=== PATIENT | female | born 1930 | race Two or more races ===

== ENCOUNTER 2016-12-15 16:32 | Inpatient (IN) | payer MEDICARE, OTHER ==
[~2016-12-15] VITALS: Ht 165.1 cm; Wt 69.4 kg
--- NOTE | 2016-12-15 16:42 | NUR ---
BIBRA FROM HOME DT SOB, PATIENT IS AA3, APPEARS IN MILD DISTRESS. PT IS SATING 87% IN ROOM AIR. DENIES CHES PAIN. SKIN IS WARM TO TOUCH AND NON DIAPHORETIC. AFEBRILE. BILATERAL BOTH LOWER EXTREMITIES EDEMA NOTED. PT'S IV ON RAC 20. INTACT.
--- NOTE | 2016-12-15 16:44 | NUR ---
EKG IN PROGESS
--- NOTE | 2016-12-15 16:45 | NUR ---
PLACED PT ON O2 VIA NC @ 3LPM. WELL TOLERATED
[2016-12-15] MEDS ORDERED: FUROSEMIDE 40 MG/4 ML VIAL ONE ×2 (16:50→21:06)
[2016-12-15] MEDS ORDERED: NITROGLYCERIN PACKET 1 GM PACKET ONE (16:50)
[2016-12-15] MEDS ORDERED: NITROGLYCERIN PACKET 1 GM PACKET TD ONE (17:00)
[2016-12-15] MEDS ORDERED: FUROSEMIDE 40 MG/4 ML VIAL IV ONE (17:00)
[2016-12-15 17:15] LABS: BASOPHILS % (AUTO) 0.5 % (0.0-2.0); EOSINOPHILS # (AUTO) 0.1 /CMM (0.0-0.7); EOSINOPHILS % (AUTO) 0.8 % (0.0-6.0); HEMATOCRIT 38 % (33-45); HEMOGLOBIN 12.1 g/dL (11.5-14.8); LYMPHOCYTES # (AUTO) 0.7 /CMM (0.8-4.8); LYMPHOCYTES % (AUTO) 8.6 % (20.0-44.0); MEAN CORPUSCULAR HEMOGLOBIN 27 PG (26.0-33.0); MEAN CORPUSCULAR HGB CONC 32 g/dl (31.0-36.0); MEAN CORPUSCULAR VOLUME 85 fL (82-100); MONOCYTES # (AUTO) 0.8 /CMM (0.1-1.30); MONOCYTES % (AUTO) 9.5 % (2.0-12.0); NEUTROPHILS # (AUTO) 6.7 /CMM (1.8-8.9); NEUTROPHILS % (AUTO) 80.6 % (43.0-81.0); PLATELET COUNT (AUTO) 215 /CMM (150-450); RDW COEFFICIENT OF VARIATION 15.5 (11.5-15.0); RED BLOOD CELL COUNT(AUTO) 4.44 MIL/uL (4.0-5.2); WHITE BLOOD COUNT (AUTO) 8.3 K/uL (4.3-11.0)
[2016-12-15 17:27] LABS: CALCIUM, SERUM 8.1 mg/dL (8.5-10.1); CARBON DIOXIDE 38 mmol/L (21-32); CHLORIDE 98 mmol/L (98-107); CREATININE 0.6 mg/dL (0.6-1.3); GLUCOSE 128 mg/dL (74-106); POTASSIUM 4.3 mmol/L (3.5-5.1); SODIUM SERUM 137 mmol/L (136-145); UREA NITROGEN, BLOOD 15 mg/dL (7-18)
[2016-12-15] MEDS ORDERED: POTA8TAB8 PO (17:27)
[2016-12-15] MEDS ORDERED: ASPI81TA2 PO (17:27)
[2016-12-15] MEDS ORDERED: FURO-144 PO (17:27)
[2016-12-15] MEDS ORDERED: DILT120C2 PO (17:27)
[2016-12-15] MEDS ORDERED: DIGO125T PO (17:27)
[2016-12-15] MEDS ORDERED: ROSU20TA28 PO (17:27)
[2016-12-15 17:34] LABS: TROPONIN I 0.023 ng/mL (0.00-0.056)
[2016-12-15 17:39] LABS: INR 1.05 (0.87-1.13); PROTHROMBIN TIME 10.9 SECS (9.5-12.7)
[2016-12-15 17:44] LABS: ALANINE AMINOTRANSFERASE 27 U/L (12-78); ALBUMIN 2.9 g/dL (3.4-5.0); ALKALINE PHOSPHATASE 63 U/L (46-116); ASPARTATE AMINOTRANSFERASE 21 U/L (15-37); B-TYPE NATRIURETIC PEPTIDE 2898 PG/ML (0-125); BILIRUBIN,DIRECT 0.1 mg/dL (0.0-0.2); BILIRUBIN,TOTAL 0.4 mg/dL (0.2-1.0); TOTAL PROTEIN, SERUM 6.2 g/dL (6.4-8.2)
--- NOTE | 2016-12-15 18:10 | NUR ---
PAGED DR GONZALEZ FOR PANEL ADMISSION
--- NOTE | 2016-12-15 18:20 | NUR ---
DR GONZALEZ CALLED BACK, TRANSFERRED CALL TO DR POMPA
--- NOTE | 2016-12-15 18:26 | NUR ---
CALLED NURSING ACCELERATOR OPERATOR FOR TELE BED
[2016-12-15] MEDS ORDERED: FUROSEMIDE 40 MG TABLET PO SCH (19:00)
[2016-12-15] MEDS ORDERED: ENOXAPARIN SODIUM 40 MG/0.4 ML DISP.SYRIN SQ SCH (19:00)
[2016-12-15] MEDS: FUROSEMIDE 40 MG/4 ML VIAL IV SCH (19:00)
[2016-12-15] MEDS ORDERED: DIGOXIN 0.125 MG TABLET PO SCH (19:00)
--- NOTE | 2016-12-15 19:14 | NUR ---
RECEIVED REPORT FROM EDMUNDO BONILLA FOR VU.
--- NOTE | 2016-12-15 19:24 | NUR ---
DR. HAWKINS AT BEDSIDE FOR EVAL AND SPEAKING TO PT FAMILY REGARDING ADMISSION
--- NOTE | 2016-12-15 20:00 | NUR ---
CALLED NURSING BUCKLE STAPLER TO FOLLOW UP ON TELE BED
--- NOTE | 2016-12-15 20:23 | NUR ---
REPORT GIVEN TO RN ELSE TO JAMAL 112
--- NOTE | 2016-12-15 20:29 | NUR ---
PT TRASNFERED PER ACLS PROTOCOL.
--- NOTE | 2016-12-15 20:30 | NUR ---
MACHINE SCALLOP CUTTER NOTES ADMITTED A86 Y/O FEMALE A/O X4 PARSI SPEAKING , ADMITTED WITH DX OF CHF EXACERBATION , SON AT BEDSIDE , UPDATED WITH CURRENT CONDITION. PTS IS AMBULATORY WITH ASSIST GOING TO BATHROOM , PTS UNDER THE SERVICE OF DR GONZALEZ , ORDERS NOTED AND CARRIED OUT , PTS IS FULL CODE . ORDER FOR LASIX CLARIFIED WITH DR ESPINO , LASIX 40 MG PO TO HOLD THE DOSE FOR TONITE , JUST GIVE ONLY LASIX 40 MG IV , SINCE PTS RECEIVED LASIX 40 MG IV IN THE EMERGENCY ROOM ORDER NOTED AND CARRIED OUT, PTS ON IV HEPLOCK ON LEFT AC G#20 INTACTAND PATENT . WITH F/C INTACT AND PATENT DRAINING WITH YELLOWISH URINE OUTPUT . V/S STABLE AFEBRILE ALL NEEDS ATTENDED TOO , CALLLIGHT WITHIN REACH . DUE MEDS GIVEN ORDERED , PTS NOTED WITH BILATERAL LEG EDEMA (LEFT LEG +3 ,RIGHT LEG +2) ELEVATED WITH PILLOWS , PTS ALSO ON O2 VIA NC AT 2 LITERS SATING 93% WILL CONTINUE TO MONITOR PTS. BODY CHECK DONE NOTED WITH INTACT SKIN.
--- NOTE | 2016-12-15 20:30 | NUR ---
PTS NOT ON MORPHINE ACCIDENTALLY PULLED OUT BY CHARGE NURSE BRIONNA FOR ANOTHER PTS.MEDICATION MORPHINE WAS RETUNED.
[2016-12-15 20:33] VITALS: BP 119/62
[2016-12-15] MEDS ORDERED: ASPIRIN 81 MG TAB.CHEW ONE (21:02)
[2016-12-15] MEDS ORDERED: DILTIAZEM HCL CD 120 MG PO ONE (21:03)
[2016-12-15] MEDS ORDERED: DIGOXIN 0.125 MG TABLET ONE (21:04)
[2016-12-15] MEDS ORDERED: ENOXAPARIN SODIUM 40 MG/0.4 ML DISP.SYRIN SQ ONE (21:05)
[2016-12-15] MEDS: ASPIRIN 81 MG TAB.CHEW PO SCH (21:12)
[2016-12-15] MEDS: DILTIAZEM HCL CD 120 MG PO SCH (21:17)
[2016-12-15] MEDS ORDERED: MORPHINE SULFATE INJ 2 MG/ML DISP.SYRIN ONE (21:28)
[2016-12-16] VITALS: BP_SYST 117; BP_SYST 119; BP_DIAS 70
[2016-12-16 04:00] VITALS: BP 128/64
--- NOTE | 2016-12-16 07:02 | NUR ---
PATIENT STILL ON AFIB WITH HR OF 107. PATIENT IN STABLE CONDITION, DENIES ANY PAIN AND DISCOMFORT. ENDORSED ACCORDINGLY FOR CONTINUITY OF CARE.
[2016-12-16] MEDS ORDERED: DIGOXIN 0.125 MG TABLET PO SCH (07:31)
--- NOTE | 2016-12-16 07:45 | NUR ---
PAYROLL ASSISTANT OPENING NOTE PATIENT IS ALERT AND ORIENTED x4. NO PAIN AT THIS TIME. NO SOB OR DISTRESS NOTED. CALL LIGHT WITHIN REACH. SAFETY MEASURES IMPLEMENTED. IV INTACT AND PATENT NO REDNESS OR SWELLING NOTED. ABLE TO COMMUNICATE NEEDS. PATIENT HAS JIMENEZ CATHETER IN PLACE, URINE IS CLEAR NO SEDIMENT NOTED. PATIENT STILL HAS BILATERAL LOWER LEG EDEMA, MD AWARE. CARDIAC DIET. WILL CONTINUE TO MONITOR
[2016-12-16 08:00] VITALS: BP 124/66
[2016-12-16 08:18] LABS: EOSINOPHILS # (AUTO) 0.1 /CMM (0.0-0.7); EOSINOPHILS % (AUTO) 0.7 % (0.0-6.0); HEMATOCRIT 39 % (33-45); HEMOGLOBIN 12.1 g/dL (11.5-14.8); LYMPHOCYTES # (AUTO) 0.6 /CMM (0.8-4.8); LYMPHOCYTES % (AUTO) 5.9 % (20.0-44.0); MEAN CORPUSCULAR HEMOGLOBIN 28 PG (26.0-33.0); MEAN CORPUSCULAR HGB CONC 32 g/dl (31.0-36.0); MEAN CORPUSCULAR VOLUME 87 fL (82-100); MONOCYTES # (AUTO) 0.8 /CMM (0.1-1.30); MONOCYTES % (AUTO) 8.2 % (2.0-12.0); NEUTROPHILS # (AUTO) 8.7 /CMM (1.8-8.9); NEUTROPHILS % (AUTO) 85.2 % (43.0-81.0); PLATELET COUNT (AUTO) 204 /CMM (150-450); RDW COEFFICIENT OF VARIATION 16.8 (11.5-15.0); RED BLOOD CELL COUNT(AUTO) 4.42 MIL/uL (4.0-5.2); WHITE BLOOD COUNT (AUTO) 10.2 K/uL (4.3-11.0)
[2016-12-16 08:53] LABS: CHOLESTEROL 141 mg/dL (<200); HDL CHOLESTEROL 86 mg/dL (40-60); LDL 43 mg/dL (0-99); TRIGLYCERIDES 37 mg/dL (30-150)
[2016-12-16 08:56] LABS: TROPONIN I 0.025 ng/mL (0.00-0.056)
[2016-12-16 08:57] LABS: ALANINE AMINOTRANSFERASE 31 U/L (12-78); ALBUMIN 2.9 g/dL (3.4-5.0); ALKALINE PHOSPHATASE 66 U/L (46-116); ASPARTATE AMINOTRANSFERASE 24 U/L (15-37); BILIRUBIN,TOTAL 0.5 mg/dL (0.2-1.0); CALCIUM, SERUM 7.7 mg/dL (8.5-10.1); CHLORIDE 97 mmol/L (98-107); CREATININE 0.6 mg/dL (0.6-1.3); GLUCOSE 120 mg/dL (74-106); POTASSIUM 4.2 mmol/L (3.5-5.1); SODIUM SERUM 138 mmol/L (136-145); TOTAL PROTEIN, SERUM 6.6 g/dL (6.4-8.2); UREA NITROGEN, BLOOD 13 mg/dL (7-18)
[2016-12-16 09:05] LABS: CARBON DIOXIDE 44 mmol/L (21-32)
[2016-12-16] MEDS: ATORVASTATIN 40 MG TABLET PO SCH (09:29)
[2016-12-16] MEDS: ASPIRIN 81 MG TAB.CHEW PO SCH (09:29)
[2016-12-16] MEDS: DILTIAZEM HCL CD 120 MG PO SCH (09:29)
[2016-12-16] MEDS: POTASSIUM CHLORIDE 10 MEQ TABLET.SA PO SCH (09:30)
[2016-12-16] MEDS: FUROSEMIDE 40 MG/4 ML VIAL IV SCH ×2 (09:30→16:34)
--- NOTE | 2016-12-16 09:30 | NUR ---
SLPS NOTE PER MD, PATIENT TO BE ON 1200 ML/DAY FLUID RESTRICTION. MONITOR INTAKE AND OUTPUT. WILL ENDORSE TO AUTOCAD TECHNICIAN NURSE
[2016-12-16 09:43] LABS: B-TYPE NATRIURETIC PEPTIDE 2666 PG/ML (0-125)
[2016-12-16] MEDS: METOLAZONE 2.5 MG TABLET PO SCH (10:49)
[2016-12-16 12:00] VITALS: BP 107/60
--- NOTE | 2016-12-16 15:25 | NUR ---
RN NOTE PATIENT HEADED DOWN TO CT SCAN OF THE HEAD WITHOUT CONTRAST. PATIENT IS ALERT AND ORIENTED x4. NO PAIN AT THIS TIME. NO SOB OR DISTRESS NOTED. VITALS ARE WITHIN NORMAL REACH.
--- NOTE | 2016-12-16 15:47 | NUR ---
RN NOTE PATIENT BACK FROM CT SCAN OF HEAD. UNABLE TO TAKE CT SCAN, PATIENT WAS MOVING TOO MUCH DURING EXAM, UNABLE TO SIT STILL. PATIENT IS ALERT AND ORIENTED x4. NO PAIN AT THIS TIME. NO SOB OR DISTRESS NOTED. CALL LIGHT WITHIN REACH. SAFETY MEASURES IMPLEMENTED. WILL CONTINUE TO MONITOR
--- NOTE | 2016-12-16 15:49 | NUR ---
PT. UNABLE TO HOLD STILL FOR CT HEAD, RN (SCARLET) IS AWARE.
[2016-12-16 16:00] VITALS: BP 114/67
--- NOTE | 2016-12-16 18:41 | NUR ---
CNC LATHE MACHINE OPERATOR CLOSING NOTE PATIENT IS ALERT AND ORIENTED x4. NO PAIN AT THIS TIME. NO SOB OR DISTRESS NOTED. CALL LIGHT WITHIN REACH AT ALL TIMES. SAFETY MEASURES IMPLEMENTED. ABLE TO COMMUNICATE NEEDS. IV INTACT AND PATENT NO REDNESS OR SWELLING NOTED. JIMENEZ CATHETER IN PLACE, NO SEDIMENT OR BLOOD NOTED. 1200 ML/DAY RESTRICTION. MONITOR INTAKE AND OUTPUT. ALL DUE MEDICATIONS GIVEN ORDERED. WILL ENDORSE TO TOP CLOSER NURSE
--- NOTE | 2016-12-16 19:30 | NUR ---
MACHINE PAN GREASER INITIAL NOTE PT RECEIVED IN BED WITH FAMILY AT BEDSIDE. A/O X4 AND ABLE TO MAKE SOME NEEDS KNOWN. ON 4L OF O2 VIA NASAL CANNULA AND SATURATING WELL. TELE- AFIB UNCONTROLLED 104. IV R AC #20 CLEAN, PATENT AND FLUSHING WELL. JIMENEZ CATHETER IN PLACE AND DRAINING CLEAR/ YELLOW URINE BY GRAVITY. ALL SAFETY MEASURES IN PLACE. CALL LIGHT WITHIN EASY REACH AT ALL TIMES. WILL CONTINUE TO MONITOR.
[2016-12-16 20:00] VITALS: BP 113/56
--- NOTE | 2016-12-16 20:39 | NUR ---
PRIMARY SCHOOL PRINCIPAL NOTE FAMILY REQUESTED ACETAMINOPHEN FOR PT. SPOKE WITH DIAL REFINISHER VALDO ROWLEY DEHYDRATION PLANT OPERATOR WITH NEW ORDERS OF ACETAMINOPHEN 650MG TABLET PO X1 DOSE NOW.
[2016-12-16] MEDS ORDERED: ACETAMINOPHEN 325 MG TABLET ONE (20:44)
[2016-12-16] MEDS: ENOXAPARIN SODIUM 40 MG/0.4 ML DISP.SYRIN SQ SCH (20:52)
[2016-12-16] MEDS ORDERED: ACETAMINOPHEN 325 MG TABLET PO ONE (21:00)
[2016-12-17] VITALS: BP 117/66
[2016-12-17 04:00] VITALS: BP 108/62
--- NOTE | 2016-12-17 06:35 | NUR ---
SOLDERER FURNACE CLOSING NOTE PT REMAINED STABLE DURING SHIFT. TELE- A-FIB REACHED 130'S UNCONTROLLED. ALL NEEDS ATTENDED TO PROMPTLY. KEPT CLEAN AND DRY. JIMENEZ CATHETER REMAINED IN PLACE. REPOSITIONED Q2H. BED LOCKED IN IN PLACE. CALL LIGHT WITHIN EASY REACH. WILL ENDORSE TO NEXT SHIFT FOR VU.
--- NOTE | 2016-12-17 07:30 | NUR ---
TELE/RN: PT RECEIVED, A&OX3 WITH PERIODS OF FORGETFULNESS, DAUGHTER SAV AT BEDSIDE, UPDATED ON POC, PT STATUS. FC DRAINING WELL TO GRAVITY. TYLENOL EFFECTIVE FOR PAIN MANAGEMENT OF CHRONIC LOWER BACK PAIN. WILL CONT TO MONITOR PT.
[2016-12-17 08:00] VITALS: BP 111/54
[2016-12-17 08:30] LABS: CHLORIDE 97 mmol/L (98-107); CREATININE 0.6 mg/dL (0.6-1.3); GLUCOSE 120 mg/dL (74-106); POTASSIUM 4.4 mmol/L (3.5-5.1); SODIUM SERUM 140 mmol/L (136-145); UREA NITROGEN, BLOOD 10 mg/dL (7-18)
[2016-12-17] MEDS: POTASSIUM CHLORIDE 10 MEQ TABLET.SA PO SCH (08:47)
[2016-12-17] MEDS: ASPIRIN 81 MG TAB.CHEW PO SCH (08:47)
[2016-12-17] MEDS: ATORVASTATIN 40 MG TABLET PO SCH (08:48)
[2016-12-17] MEDS: DILTIAZEM HCL CD 120 MG PO SCH (08:48)
[2016-12-17] MEDS: FUROSEMIDE 40 MG/4 ML VIAL IV SCH ×2 (08:49→16:14)
[2016-12-17] MEDS: METOLAZONE 2.5 MG TABLET PO SCH (08:49)
[2016-12-17 08:55] LABS: EOSINOPHILS % (AUTO) 0.2 % (0.0-6.0); HEMATOCRIT 40 % (33-45); HEMOGLOBIN 12.2 g/dL (11.5-14.8); LYMPHOCYTES # (AUTO) 0.7 /CMM (0.8-4.8); LYMPHOCYTES % (AUTO) 7.6 % (20.0-44.0); MEAN CORPUSCULAR HEMOGLOBIN 27 PG (26.0-33.0); MEAN CORPUSCULAR HGB CONC 31 g/dl (31.0-36.0); MEAN CORPUSCULAR VOLUME 89 fL (82-100); MONOCYTES # (AUTO) 0.9 /CMM (0.1-1.30); MONOCYTES % (AUTO) 9.8 % (2.0-12.0); NEUTROPHILS # (AUTO) 7.3 /CMM (1.8-8.9); NEUTROPHILS % (AUTO) 82.4 % (43.0-81.0); PLATELET COUNT (AUTO) 167 /CMM (150-450); RDW COEFFICIENT OF VARIATION 16.5 (11.5-15.0); RED BLOOD CELL COUNT(AUTO) 4.48 MIL/uL (4.0-5.2); WHITE BLOOD COUNT (AUTO) 8.8 K/uL (4.3-11.0)
[2016-12-17 08:56] LABS: CARBON DIOXIDE 48 mmol/L (21-32)
--- NOTE | 2016-12-17 09:33 | NUR ---
ATTEMPTED CT HEAD, BUT PATIENT REFUSED IN MIDDLE OF EXAM. PATIENT UNABLE TO TOLERATE LYING FLAT AND BECAME EXTREMELY AGITATED. RN AWARE
[2016-12-17 10:39] LABS: B-TYPE NATRIURETIC PEPTIDE 2648 PG/ML (0-125)
[2016-12-17 12:00] VITALS: BP 107/53
--- NOTE | 2016-12-17 12:30 | NUR ---
TELE/RN: DR CARLOS CASSIDY, UPDATED ON PT STATUS. NO NEW ORDERS FOR CO2 48, TITRATING O2 DOWN TO 2L/MIN VIA NC. INFORMED MD PT REFUSING TO HAVE HEAD CT. WILL CANCEL ORDER. DIGOXIN DOSE INCREASED BY MD. WILL CONT TO MONITOR PT.
[2016-12-17] MEDS ORDERED: DIGOXIN 0.125 MG TABLET PO SCH (13:00)
[2016-12-17] MEDS: acetaZOLAMIDE 250 MG TABLET PO SCH (15:28)
[2016-12-17 16:00] VITALS: BP 107/53
--- NOTE | 2016-12-17 19:30 | NUR ---
ORGANIZATIONAL EFFECTIVENESS DIRECTOR INITIAL NOTE PT RECEIVED WITH SON AT BEDSIDE. A/O X 2 AND ABLE TO MAKE SOME NEEDS KNOWN. ON 2L OF O2 AND SATURATING AT 93%. NO SOB NOTED. NO C/O PAIN AT THIS TIME. BED IN LOWEST POSITION AND LOCKED IN PLACE WITH BED ALARM ON. IV RAC #20 FLUSHING WELL AND CLEAN. JIMENEZ CATHETER IN PLACE AND DRAINING CLEAR TO YELLOW URINE. CALL LIGHT WITHIN EASY REACH AT ALL TIMES. WILL CONTINUE TO MONITOR.
[2016-12-17 20:00] VITALS: BP 102/51
[2016-12-17] MEDS: ENOXAPARIN SODIUM 40 MG/0.4 ML DISP.SYRIN SQ SCH (21:23)
[2016-12-18] VITALS: BP 101/56
[2016-12-18 04:00] VITALS: BP 104/51
--- NOTE | 2016-12-18 06:41 | NUR ---
GREY STOCK RECORDER CLOSING NOTE NO ACUTE DISTRESS NOTED. NO SOB NOTED. ALL SAFETY MEASURES IN PLACE. BED ALARM ON. CALL LIGHT WITHIN EASY REACH AT ALL TIMES. KEPT CLEAN AND DRY. ALL NEEDS MET PROMPTLY. WILL ENDORSE TO NEXT SHIFT FOR VU.
--- NOTE | 2016-12-18 07:52 | NUR ---
ABRADING MACHINE TENDER INITIAL NOTE RECEIVED IN BED RESTING COMFORTABLY. A/O X 2 AND ABLE TO MAKE SOME NEEDS KNOWN. ON 2L OF O2 AND SATURATING AT 94%. NO SOB NOTED. NO C/O PAIN AT THIS TIME. BED IN LOWEST POSITION AND LOCKED IN PLACE WITH BED ALARM ON. IV RAC #20 FLUSHING WELL AND CLEAN. JIMENEZ CATHETER IN PLACE AND DRAINING CLEAR TO YELLOW URINE. CALL LIGHT WITHIN EASY REACH. RN WILL CONTINUE TO MONITOR.
[2016-12-18 08:00] VITALS: BP 106/43
[2016-12-18] MEDS: FUROSEMIDE 40 MG/4 ML VIAL IV SCH (08:41)
[2016-12-18] MEDS: POTASSIUM CHLORIDE 10 MEQ TABLET.SA PO SCH (08:41)
[2016-12-18] MEDS: DILTIAZEM HCL CD 120 MG PO SCH (08:42)
[2016-12-18] MEDS: ATORVASTATIN 40 MG TABLET PO SCH (08:42)
[2016-12-18] MEDS: ASPIRIN 81 MG TAB.CHEW PO SCH (08:42)
[2016-12-18] MEDS: acetaZOLAMIDE 250 MG TABLET PO SCH (08:42)
[2016-12-18 09:17] LABS: CALCIUM, SERUM 8.8 mg/dL (8.5-10.1); CHLORIDE 91 mmol/L (98-107); CREATININE 0.6 mg/dL (0.6-1.3); GLUCOSE 131 mg/dL (74-106); POTASSIUM 3.3 mmol/L (3.5-5.1); SODIUM SERUM 136 mmol/L (136-145); UREA NITROGEN, BLOOD 11 mg/dL (7-18)
[2016-12-18 09:34] LABS: CARBON DIOXIDE 49 mmol/L (21-32)
[2016-12-18 12:00] VITALS: BP 93/42
--- NOTE | 2016-12-18 12:19 | NUR ---
RN NOTE RN spoke with patient son in regards to the patient discharge plan , also requested the patient primary Waste Machine Tender information to schedule a follow up visit with the patient provider - Dr. Peggy Craig/IVDHYA MUNIZ [phone] [facility]. RN CONTACTED THE PATIENT PRIMARY TAG PRESS OPERATOR - SCHEDULED A F/U APPOINTMENT FOR December. TWO WEEKS POST DISCHARGE FROM THE HOSPITAL . RN ACKNOWLEDGED PATIENT IV REMOVED SON WILL BE PICKING THE PATIENT UP SHORTLY .
--- NOTE | 2016-12-18 12:31 | NUR ---
RN NOTE PATIENT DISCHARGE PLAN REVIEWED WITH THE PATIENT PATIENT ACKNOWLEDGE UNDERSTANDING , RN WILL CONTINUE TO FOLLOW
[2016-12-18] MEDS ORDERED: POTASSIUM CHLORIDE 20 MEQ TAB.PRT.SR PO ONE (14:30)
== END 2016-12-18 14:10 | disposition home or self-care (01) | DRG 291 ==
LOC: ER 16:37 → TELE1 20:19
PROVIDERS: ADMIT Internal Medicine; ATTEND Internal Medicine
DX: I50.33 Acute on chronic diastolic (congestive) heart failure (principal); J96.01 Acute respiratory failure with hypoxia; D68.59 Other primary thrombophilia; E78.5 Hyperlipidemia, unspecified; I25.10 Atherosclerotic heart disease of native coronary artery without angina pectoris; Z88.0 Allergy status to penicillin; Z79.899 Other long term (current) drug therapy; Z79.82 Long term (current) use of aspirin; I27.2 Other secondary pulmonary hypertension; I08.0 Rheumatic disorders of both mitral and aortic valves; I48.91 Unspecified atrial fibrillation
CPT/HCPCS: 36415; 71010-TC; 80048-TC; 80053-TC; 80061-TC; 80076-TC; 80162-TC; 82962-TC; 83880; 84484-TC; 85025-TC; 85730-TC; 87081-TC; 93307-TC; 94799-TC; 97001-TC; A4606; J1650; J1940; J2270; Z7610